=== PATIENT | female | born 1945 | race Caucasian/White ===

== ENCOUNTER 2023-08-11 17:48 | Inpatient (IN) | payer OTHER ==
[2023-08-11] MEDS ORDERED: ACETAMINOPHEN INJECTION 100 ML IVPB ONE (18:24)
[2023-08-11] MEDS: ACETAMINOPHEN 1000 MG/100 ML BAG IVPB ONE (18:30)
[2023-08-11 18:41] LABS: HEMATOCRIT 28.6 % (32.4-45.2); HEMOGLOBIN 9.7 G/dL (10.7-15.3); MCH 31.6 pg (25.7-33.7); MEAN CELL VOLUME 93.2 fl (80-96); MEAN PLT VOLUME 8.7 fl (7.5-11.1); RBC 3.07 10^6/uL (3.60-5.2); RDW 13.9 % (11.6-15.6); WHITE BLOOD COUNT 9.3 10^3/uL (4.0-10.8)
[2023-08-11 18:57] LABS: ALBUMIN 3.8 g/dl (3.4-5.0); BILIRUBIN,TOTAL 0.7 mg/dl (0.2-1); CALCIUM 9.1 mg/dl (8.5-10.1); CREATININE 1.3 mg/dl (0.6-1.3); TOT PROT 5.8 g/dl (6.4-8.2)
[2023-08-11 19:11] LABS: EPITHELIAL CELLS 0-5 /hpf
[2023-08-11 19:14] LABS: PLATELET ESTIMATE ADEQUATE
[2023-08-11] MEDS: LACTATED RINGERS SOLUTION 1000 ML INFUS.BAG IV ONE (19:40)
[2023-08-11 23:24] VITALS: BMI 23.1
[2023-08-12] MEDS: CIPROFLOXACIN 500 MG TABLET (RESTRICTED TO ID) PO ONE (00:13)
[2023-08-12] MEDS ORDERED: SODIUM CHLORIDE 1,000 ML IV SCH (06:00)
[2023-08-12 08:48] LABS: ANION GAP 11 mmol/L (4-13); CALCIUM 9.4 mg/dl (8.5-10.1); CHLORIDE 102 mmol/L (98-107); CO2 23 mmol/L (21-32); CREATININE 1.3 mg/dl (0.6-1.3); GLUCOSE,RANDOM 89 mg/dl (74-106); POTASSIUM 3.9 mmol/L (3.5-5.1); SODIUM 136 mmol/L (136-145)
[2023-08-12 10:01] LABS: HEMATOCRIT 33.3 % (32.4-45.2); HEMOGLOBIN 11.4 GM/dL (10.7-15.3); MCH 31.2 pg (25.7-33.7); MCHC 34.1 g/dl (32.0-36.0); MEAN CELL VOLUME 91.4 fl (80-96); MEAN PLT VOLUME 8.6 fl (7.5-11.1); PLATELET COUNT 225 10^3/uL (134-434); RBC 3.64 M/mm3 (3.60-5.2); RDW 13.7 % (11.6-15.6); WHITE BLOOD COUNT 5.4 K/mm3 (4.0-10.0)
[2023-08-12] MEDS: ASPIRIN COATED 81 MG TABLET.EC PO SCH (10:12)
[2023-08-12] MEDS: LOSARTAN POTASSIUM 50 MG TABLET PO SCH (10:12)
[2023-08-12] MEDS: ATORVASTATIN CA 40 MG TABLET (FP) PO SCH (10:12)
[2023-08-12] MEDS: amLODIPine BESYLATE 5 MG TABLET (FP) PO SCH (10:12)
[2023-08-12] MEDS: CEFTRIAXONE 2 GM in DEXTROSE 5%-WATER 100 ML IVPB SCH (10:13)
[2023-08-12 11:34] LABS: ANISOCYTOSIS 0; MACROCYTOSIS 0; OVALOCYTE 1+
[2023-08-12] MEDS ORDERED: LACTATED RINGERS SOLUTION 1,000 ML IV ONE (15:15)
[2023-08-12] MEDS ORDERED: DEXTROSE 5%-WATER 100 ML IVPB ONE (15:36)
[2023-08-12] MEDS: SODIUM CHLORIDE 0.45% 1,000 ML IV SCH (16:29)
[2023-08-12] MEDS: ACETAMINOPHEN 1000 MG/100 ML BAG IVPB ONE (16:35)
[2023-08-12] MEDS: PIPERACILLIN/TAZOB 4.5 GM 4.5 GM in DEXTROSE 5%-WATER 100 ML IVPB ONE (17:17)
[2023-08-14 03:08] VITALS: RESP 18
[2023-08-14 09:53] LABS: ALBUMIN 3.1 g/dl (3.4-5.0); ALK PHOS 50 U/L (45-117); ANION GAP 11 mmol/L (4-13); BILIRUBIN,TOTAL 0.3 mg/dl (0.2-1); CALCIUM 7.8 mg/dl (8.5-10.1); CHLORIDE 99 mmol/L (98-107); CO2 21 mmol/L (21-32); CREATININE 1.9 mg/dl (0.6-1.3); GLUCOSE,RANDOM 100 mg/dl (74-106); POTASSIUM 3.4 mmol/L (3.5-5.1); SGOT/AST 22 U/L (15-37); SGPT/ALT 19 U/L (7-52); SODIUM 131 mmol/L (136-145); TOT PROT 4.5 g/dl (6.4-8.2)
[2023-08-14 10:15] LABS: BASO % 0.1 % (0-2.0); EOS % 5.9 % (0-4.5); HEMATOCRIT 27.2 % (32.4-45.2); HEMOGLOBIN 9.3 GM/dL (10.7-15.3); LYMPH % 3.1 % (8-40); MCH 31.1 pg (25.7-33.7); MCHC 34.1 g/dl (32.0-36.0); MEAN CELL VOLUME 91.2 fl (80-96); MEAN PLT VOLUME 8.4 fl (7.5-11.1); MONO % 4.2 % (3.8-10.2); NEUT % 86.7 % (42.8-82.8); PLATELET COUNT 223 10^3/uL (134-434); RBC 2.98 M/mm3 (3.60-5.2); RDW 13.9 % (11.6-15.6); WHITE BLOOD COUNT 7.9 K/mm3 (4.0-10.0)
[2023-08-14] MEDS: POTASSIUM CHLORIDE ORAL LIQUID 20 MEQ/15 ML PO ONE (11:57)
[2023-08-14] MEDS: LACTOBACILLUS ACIDOPHILUS 1 TABLET PO SCH (11:57)
[2023-08-14] MEDS: LACTATED RINGERS SOLUTION 1,000 ML/1,000 ML INFUS.BAG IV SCH ×2 (11:59→14:14)
[2023-08-15 08:54] LABS: ALBUMIN 2.8 g/dl (3.4-5.0); ALK PHOS 46 U/L (45-117); ANION GAP 7 mmol/L (4-13); BILIRUBIN,TOTAL 0.3 mg/dl (0.2-1); CHLORIDE 104 mmol/L (98-107); CO2 22 mmol/L (21-32); CREATININE 1.4 mg/dl (0.6-1.3); GLUCOSE,RANDOM 91 mg/dl (74-106); MAGNESIUM 1.6 mg/dL (1.8-2.4); POTASSIUM 3.9 mmol/L (3.5-5.1); SGOT/AST 22 U/L (15-37); SGPT/ALT 17 U/L (7-52); SODIUM 133 mmol/L (136-145); TOT PROT 4.1 g/dl (6.4-8.2)
[2023-08-15] MEDS: CEFTRIAXONE 1 GM in DEXTROSE 5%-WATER - 50 ML IVPB SCH (09:22)
[2023-08-15 10:09] LABS: BASO % 0.2 % (0-2.0); EOS % 6.4 % (0-4.5); HEMATOCRIT 26.3 % (32.4-45.2); HEMOGLOBIN 8.9 GM/dL (10.7-15.3); LYMPH % 5.7 % (8-40); MCH 30.8 pg (25.7-33.7); MEAN CELL VOLUME 90.5 fl (80-96); MEAN PLT VOLUME 8.4 fl (7.5-11.1); MONO % 6.1 % (3.8-10.2); NEUT % 81.6 % (42.8-82.8); PLATELET COUNT 216 10^3/uL (134-434); RBC 2.91 M/mm3 (3.60-5.2); RDW 13.9 % (11.6-15.6); WHITE BLOOD COUNT 5.1 K/mm3 (4.0-10.0)
[2023-08-16 12:29] LABS: ALBUMIN 2.9 g/dl (3.4-5.0); ALK PHOS 53 U/L (45-117); ANION GAP 7 mmol/L (4-13); BILIRUBIN,TOTAL 0.2 mg/dl (0.2-1); CALCIUM 8.1 mg/dl (8.5-10.1); CHLORIDE 103 mmol/L (98-107); CO2 24 mmol/L (21-32); CREATININE 1.2 mg/dl (0.6-1.3); GLUCOSE,RANDOM 111 mg/dl (74-106); POTASSIUM 4.1 mmol/L (3.5-5.1); SGOT/AST 28 U/L (15-37); SGPT/ALT 19 U/L (7-52); SODIUM 134 mmol/L (136-145); TOT PROT 4.3 g/dl (6.4-8.2)
[2023-08-16 12:35] LABS: HEMATOCRIT 26.8 % (32.4-45.2); HEMOGLOBIN 8.8 G/dL (10.7-15.3); MCH 30.7 pg (25.7-33.7); MCHC 32.8 g/dl (32.0-36.0); MEAN CELL VOLUME 93.6 fl (80-96); MEAN PLT VOLUME 8.5 fl (7.5-11.1); PLATELET COUNT 225.5 10^3/uL (134-434); RBC 2.86 10^6/uL (3.60-5.2); RDW 15.5 % (11.6-15.6); WHITE BLOOD COUNT 4.3 10^3/uL (4.0-10.8)
[2023-08-16 12:36] LABS: PLATELET ESTIMATE ADEQUATE
[2023-08-16 15:08] VITALS: BP 121/54; PULSE 97; TEMP 98.5
== END 2023-08-16 17:45 | disposition home or self-care (01) | DRG 392 ==
LOC: FER 17:48 → FM/S 21:51
PROVIDERS: ADMIT Internal Medicine
DX: K57.92 Diverticulitis of intestine, part unspecified, without perforation or abscess without bleeding (principal); E87.1 Hypo-osmolality and hyponatremia; N17.9 Acute kidney failure, unspecified; E78.5 Hyperlipidemia, unspecified; I13.10 Hypertensive heart and chronic kidney disease without heart failure, with stage 1 through stage 4 chronic kidney disease, or unspecified chronic kidney disease; N18.9 Chronic kidney disease, unspecified
CPT/HCPCS: 0241U-QW; 36415; 70450-TC; 71045-TC-FY; 72125-TC; 72170-TC-FY; 73502-TC-RT-FY; 73552-TC-RT-FY; 73564-TC-RT-FY; 74177-TC; 76705-TC; 80048; 80053; 81003; 81015; 82436; 82550; 82553; 82962; 83735; 83930; 83935; 84133; 84300; 84484; 85025; 85027; 87040; 87086; 93005; 97116-GP; 97162-GP; 99285-25; J0131; Q9967